=== PATIENT | female | born 1990 | race Caucasian/White ===

== ENCOUNTER 2017-10-08 15:18 | Emergency (ER) | payer OTHER ==
[~2017-10-08] VITALS: Ht 172.7 cm; Wt 123.8 kg
[2017-10-08] MEDS ORDERED: ATACAND4 MG PO (15:24)
[2017-10-08] MEDS ORDERED: LASIX20 MG PO (15:24)
== END 2017-10-08 17:48 | disposition home or self-care (01) ==
LOC: ER 15:18
DX: K76.0 Fatty (change of) liver, not elsewhere classified (principal); R10.2 Pelvic and perineal pain; R10.84 Generalized abdominal pain; E11.9 Type 2 diabetes mellitus without complications

== ENCOUNTER 2017-10-12 12:59 | Emergency (ER) | payer OTHER ==
[~2017-10-12] VITALS: Ht 170.2 cm; Wt 125.2 kg
[~2017-10-12 12:59] MED LIST: ATACAND4 MG PO; LASIX20 MG PO
[2017-10-12] MEDS ORDERED: METFORMIN HCL850 MG (13:07)
[2017-10-12] MEDS ORDERED: NIFE60TA3 PO (13:07)
== END 2017-10-12 15:19 | disposition home or self-care (01) ==
LOC: ER 12:59
DX: I10 Essential (primary) hypertension (principal); E11.9 Type 2 diabetes mellitus without complications

== ENCOUNTER 2018-09-21 16:04 | Emergency (ER) | payer OTHER ==
[~2018-09-21] VITALS: Ht 175.3 cm; Wt 113.4 kg
[~2018-09-21 16:04] MED LIST changes: +METFORMIN HCL850 MG; +NIFE60TA3 PO
== END 2018-09-21 20:53 | disposition home or self-care (01) ==
LOC: ER 16:04
DX: N83.291 Other ovarian cyst, right side (principal); R10.2 Pelvic and perineal pain

== ENCOUNTER 2018-10-23 15:57 | Emergency (ER) | payer OTHER ==
[~2018-10-23] VITALS: Ht 172.7 cm; Wt 121.1 kg
[2018-10-23] MEDS ORDERED: ZOLOFT25 MG PO (16:12)
[2018-10-23] MEDS ORDERED: PRILOSEC10 MG PO (16:12)
[2018-10-23] MEDS ORDERED: LIPITOR20 MG PO (16:12)
[2018-10-23] MEDS ORDERED: CRYSELLE-28 TA1 EACH PO (16:13)
[2018-10-23] MEDS ORDERED: LANTUS SOL100 UNIT/1 SUBCUTANEO (16:13)
== END 2018-10-23 22:52 | disposition home or self-care (01) ==
LOC: ER 15:57
DX: R10.11 Right upper quadrant pain (principal); R42 Dizziness and giddiness

== ENCOUNTER 2018-11-10 12:12 | Emergency (ER) | payer OTHER ==
[~2018-11-10] VITALS: Ht 172.7 cm; Wt 122.5 kg
[~2018-11-10 12:12] MED LIST changes: +CRYSELLE-28 TA1 EACH PO; +LANTUS SOL100 UNIT/1 SUBCUTANEO; +LIPITOR20 MG PO; +PRILOSEC10 MG PO; +ZOLOFT25 MG PO
== END 2018-11-10 16:00 | disposition home or self-care (01) ==
LOC: ER 12:12
DX: R10.84 Generalized abdominal pain (principal); I10 Essential (primary) hypertension

== ENCOUNTER 2018-12-13 16:00 | Emergency (ER) | payer OTHER ==
[~2018-12-13] VITALS: Ht 172.7 cm; Wt 119.7 kg
== END 2018-12-13 22:31 | disposition home or self-care (01) ==
LOC: ER 16:00
DX: R51 Headache (principal)